=== PATIENT | male | born 1990 | race Two or more races ===

== ENCOUNTER 2019-11-01 01:31 | Emergency (ER) | payer SELFPAY ==
[~2019-11-01] VITALS: Ht 160 cm; Wt 75.0 kg
[2019-11-01] MEDS ORDERED: IBUPROFEN 600MG TABLET PO STA (02:47)
[2019-11-01 04:28] VITALS: BP 123/75
== END 2019-11-01 04:30 | disposition home or self-care (01) ==
LOC: ER 01:52
DX: J10.1 Influenza due to other identified influenza virus with other respiratory manifestations (principal); M60.9 Myositis, unspecified
CPT/HCPCS: 87804; 99283

== ENCOUNTER 2019-11-02 07:41 | Emergency (ER) | payer SELFPAY ==
[~2019-11-02] VITALS: Ht 162.6 cm; Wt 75.0 kg
[2019-11-02] MEDS ORDERED: KETOROLAC 30MG/ML VIAL IV STA (08:07)
[2019-11-02] MEDS ORDERED: SODIUM CHLORIDE 0.9% 1,000 ML IV ONE (08:07)
[2019-11-02] MEDS ORDERED: ONDANSETRON HCL 4MG/2ML INJ IV STA (08:07)
[2019-11-02 10:30] VITALS: BP 112/52
[2019-11-02] MEDS ORDERED: ACETAMINOPHEN 325MG TABLET PO ONE (10:30)
== END 2019-11-02 11:24 | disposition home or self-care (01) ==
LOC: ER 07:41
DX: J10.1 Influenza due to other identified influenza virus with other respiratory manifestations (principal); R11.10 Vomiting, unspecified
CPT/HCPCS: 87070; 87430; 96361; 96374; 96375; 99283; J1885; J2405; J7030